=== PATIENT | male | born 1965 | race Caucasian/White ===

== ENCOUNTER 2016-07-12 13:03 | Emergency (ER) | payer OTHER ==
[~2016-07-12] VITALS: Ht 165.1 cm; Wt 72.7 kg
[2016-07-12 13:08] VITALS: BP 139/89; PULSE 82; RESP 16; O2SAT 98
--- NOTE | 2016-07-12 13:40 | ED.REPORT ---
HPI-Extremity Problem Upper Date of Service Jul 12, 2016 ED Provider: Joleen Portillo History of Present Illness: smashed 4th right finger between the ground and wrench bar. happened about 1245 at work. unknown tdap. no primary care. 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 right hand dominant supposed to work tomorrow. 03/06 after digital no pain Nursing Notes Stated Complaint: RIGHT HAND INJURY Chief Complaint: Extremity Trauma Nursing Notes Reviewed: Yes Allergies: Coded Allergies: meperidine (Verified Adverse Reaction, Severe, vomitting, 07/12/16) General Time Seen by MD: 13:19 Chief Complaint Finger injury right 4 Hx Obtained From: Patient Onset Occurred: 1 - 4 hours ago Symptom Duration: Since onset Past Medical History Past Medical History Denies: Asthma, Diabetes mellitus Past Surgical History knee surgery 12/2015 Smoking History Current Every Day Smoker (1/2 pack a day for 4 years) Social History Alcohol Use: 1-3 per day Drug Use: Denies drug use Other Social History: Occupation works for the [employer] 07/12/2016 Ambulatory Status Independent Review of Systems Basic Review of Systems Eyes: Vision NL, No discharge ENT: Hearing NL, No pain, No nasal congestion, No pharyngeal pain Respiratory: No shortness of breath, No cough, No wheeze Cardiovascular: No chest pain, No dyspnea on exertion, No orthopnea, No parox noct dyspnea, No palpitations GI: No abdominal pain, No anorexia, No nausea, No vomiting : No dysuria, No frequency Hematologic: No bleeding, No bruising Endocrine: No cold intolerance, No heat intolerance, No weight gain, No weight loss Allergy / Immune: No allergy Psychiatric: Normal thought content Physical Exam Initial Vital Signs Vital Signs (First) Date Time Temp Pulse Resp B/P Pulse Ox O2 Delivery O2 Flow Rate FiO2 07/12/16 13:08 36.1 82 16 139/89 98 Room Air Initial VS: Reviewed, Vital signs normal General/Constitutional: Well-developed, Well-nourished Head / Eyes: Atraumatic, Normocephalic, PERRL ENT: Mucous membranes moist, Conjunctiva normal, No scleral icterus Neck: Supple, Non-tender, Full range of motion Respiratory: Breath sounds normal, Clear to auscultation, No respiratory distress Cardiovascular: Regular rate & rhythm, Heart sounds normal, Intact distal pulses Abdomen / GI: Soft, Non-tender, No guarding, No rebound, No distention Back: No CVA tenderness Lymphatic: No lymphadenopathy Lower Extremities: Vascular intact, Neuro intact, No swelling, No tenderness Skin: Warm, Dry, No cyanosis Neurologic: Alert, Oriented, Nonfocal Psychiatric: Mood/affect normal, Behavior normal, Normal thought content General/Constitutional: Awake, Alert, No acute distress, Well appearing, Well developed, Well hydrated, Well nourished, Cooperative, Not toxic appearing Respiratory / Chest: Atraumatic, Breath sounds NL, Breath sounds = bilat, No respiratory distress Cardiovascular: Heart rate NL, Regular rhythm, Heart sounds NL, No gallop Upper Extremity / MS: Atraumatic, Inspection NL, Full range of motion, No swelling, Non-tender right 4th finger with laceration on finger tip, nail intact. Laceration does not extend to nail. Has full range of motion of finger tip. no active bleeding Interpretation & Diagnostics X-Ray Interpretation Xray Interpretation: ECHNIQUE: AP hand, 2 views of the right 4th finger(s) acquired. COMPARISON: None. FINDINGS: Bones: Small avulsion fracture of the tuft of the 4th distal phalange is noted. Soft tissues: No suspicious soft tissue calcifications. IMPRESSION: Small avulsion fracture of the tuft of the third distal phalange. Procedures Laceration Management Time: 14:00 Procedure Performed by: Allied [facility] pract Consent / Setup / Site Prep: Informed consent provided, Consent from patient , Hand hygiene observed, Stand sterile technique Location of Wound: right 4th finger tip Wound Length: 2 cm Local Anesthesia: Lidocaine 1%, 5cc, 27g needle Digital Block: Yes Digit Involved: Ring finger right Wound Preparation: Normal saline Debridement: None Irrigation: 250 cc Repair Skin: ___ O (5), Nylon # Sutures - Skin: 5 Closure Layers: 1 Suture Technique: Simple Post-Procedure / Complications: Antibiotic oint applied, Dressing applied, No complications, Condition improved, Tolerated procedure well, Patient stable Discharge & Departure Impression: Primary Impression: Finger laceration Additional Impression: Open fracture of tuft of distal phalanx of finger Disposition: Home Patient Instructions: Finger Fracture (ED), Finger Laceration (ED) Additional Instructions: The x-ray shows a small tuft fracture. This will heal by itself. Start antibiotics keflex 500 mg 3 times a day for 7 days. You can follow with ortho if desired. Please call Dr. Mendoza office for follow up. No using right hand for 14 days. Off work tomorrow 07/13/2016, then light duty, no using right hand thru 07/30/2016. Sutures out in 10 days here. Leave the tube gauze on for 3 days, then use bacitracin and a bandaid. Use the finger splint as needed. Use ibuprofen 800 mg 3 times a day for 7 days. Can use hydrocodone 1 up to 2 times a day as needed for severe unrelenting pain. You can not work with the pain medication. Elevate the hand as much as possible. Referrals: Yosi Mendoza MD EDSupervising Provider for [facility]: Mateus Kidd MD copies to: Yosi Mendoza MD, Sue ARNP Jul 12, 2016 13:40
--- NOTE | 2016-07-12 13:47 | DRSVH ---
PROCEDURE: X-RAY FINGERS, TWO VIEWS INDICATIONS: crush injury trauma TECHNIQUE: AP hand, 2 views of the right third finger(s) acquired. COMPARISON: None. FINDINGS: Bones: Small avulsion fracture of the tuft of the third distal phalange is noted. Soft tissues: No suspicious soft tissue calcifications. IMPRESSION: Small avulsion fracture of the tuft of the third distal phalange. Dictated by: Opal Simon MD, PhD on 07/12/2016 at 13:46 Approved by: Opal Simon MD, PhD on 07/12/2016 at 13:46
[2016-07-12] MEDS ORDERED: TdaP Vaccine 0.5 mL Inj IM ONE (13:50)
== END 2016-07-12 14:38 | disposition home or self-care (01) ==
LOC: SED 13:03
DX: S62.634A Displaced fracture of distal phalanx of right ring finger, initial encounter for closed fracture (principal); S61.214A Laceration without foreign body of right ring finger without damage to nail, initial encounter; W23.0XXA Caught, crushed, jammed, or pinched between moving objects, initial encounter; Y92.59 Other trade areas as the place of occurrence of the external cause; Y93.89 Activity, other specified; Y99.0 Civilian activity done for income or pay; F17.200 Nicotine dependence, unspecified, uncomplicated; Z88.5 Allergy status to narcotic agent; Z23 Encounter for immunization